=== PATIENT | female | born 1975 | race Caucasian/White ===

== ENCOUNTER 2022-06-09 09:43 | Day surgery (SDC) | payer OTHER ==
[2022-06-09] MEDS: Lactated Ringers 1,000 ML IV SCH (09:58)
[2022-06-09] MEDS ORDERED: fentaNYL 100 MCG/2 ML SDV ONE (10:55)
[2022-06-09] MEDS ORDERED: Propofol 200 MG/20 ML SDV ONE ×2 (10:55→11:26)
== END 2022-06-09 13:10 | disposition home or self-care (01) ==
LOC: VM.SDS 09:43
PROVIDERS: ATTEND Surgery
DX: Z12.11 Encounter for screening for malignant neoplasm of colon (principal); E66.9 Obesity, unspecified; M19.90 Unspecified osteoarthritis, unspecified site; E88.81 Metabolic syndrome and other insulin resistance; J03.90 Acute tonsillitis, unspecified; J04.0 Acute laryngitis; Z79.899 Other long term (current) drug therapy; Z68.41 Body mass index [BMI] 40.0-44.9, adult
CPT/HCPCS: 81025; J2704; J3010; J7120